=== PATIENT | male | born 1990 ===

== ENCOUNTER 2017-04-05 19:35 | Emergency (ER) | payer OTHER ==
[2017-04-05 19:52] VITALS: BP 141/94; PULSE 101; RESP 17; TEMP 98.8; O2SAT 99
--- NOTE | 2017-04-05 21:28 | ED PDOC ---
HPI: Back Time Seen by Provider: 04/05/17 20:23 Chief Complaint (Nursing): Back Pain Chief Complaint (Provider): Back Pain History Per: Patient History/Exam Limitations: no limitations Onset/Duration Of Symptoms: Days (x1 month), Intermittent Episodes Current Symptoms Are (Timing): Still Present Additional Complaint(s): 27 year old male who presents to the emergency department with a complaint of intermittent low back pain worsen with more than 2 hours of walking/standing ongoing for 1 month. Denied any trauma or injury. Patient reported taking Tylenol with minimal alleviation of pain. PMD: none provided Past Medical History Reviewed: Historical Data, Nursing Documentation, Vital Signs Vital Signs: Last Vital Signs Temp 98.8 F 04/05/17 19:50 Pulse 101 H 04/05/17 19:50 Resp 17 04/05/17 19:50 BP 141/94 H 04/05/17 19:50 Pulse Ox 99 04/05/17 19:50 - Medical History PMH: No Chronic Diseases - Surgical History Surgical History: No Surg Hx - Family History Family History: States: Unknown Family Hx - Social History Current smoker - smoking cessation education provided: No Alcohol: None Drugs: Denies - Home Medications Home Medications: Ambulatory Orders Medication Instructions Recorded Cyclobenzaprine [Cyclobenzaprine 10 mg PO TID PRN #15 tab 04/05/17 HCl] Naproxen 500 mg PO BID #30 tab 04/05/17 - Allergies Allergies/Adverse Reactions: Allergies Allergy/AdvReac Type Severity Reaction Status Date / Time No Known Allergies Allergy Verified 04/05/17 19:52 Review of Systems ROS Statement: Except As Marked, All Systems Reviewed And Found Negative Musculoskeletal: Positive for: Back Pain (lower). Negative for: Other (back trauma or injury) Physical Exam - Reviewed Nursing Documentation Reviewed: Yes Vital Signs Reviewed: Yes - Physical Exam Appears: Positive for: Uncomfortable Skin: Positive for: Normal Color, Warm, Dry. Negative for: Rash, Cyanosis Eye Exam: Positive for: Normal appearance, EOMI, PERRL. Negative for: Nystagmus Neck: Positive for: Normal, Painless ROM, Supple. Negative for: Decreased ROM Cardiovascular/Chest: Positive for: Regular Rate, Rhythm, Chest Non Tender Respiratory: Positive for: Normal Breath Sounds. Negative for: Decreased Breath Sounds, Wheezing, Respiratory Distress Gastrointestinal/Abdominal: Positive for: Normal Exam, Soft. Negative for: Tenderness, Mass Back: Positive for: Vertebral Tenderness (midline mildly at L3-L4). Negative for: Normal Inspection, L CVA Tenderness, R CVA Tenderness, Other (deformities) Extremity: Positive for: Normal ROM (lower). Negative for: Pedal Edema ( bilateral), Calf Tenderness (bilateral), Deformity Neurologic/Psych: Positive for: Alert (x3), Oriented - ECG O2 Sat by Pulse Oximetry: 99 (RA) Pulse Ox Interpretation: Normal Medical Decision Making Medical Decision Making: Initial Impression: Back pain Initial Plan: * Xray LS spine AP/LAT Time: 2119 XR L spine : (-) fracture, (+) loss of normal lordosis of the lumbar spine, as read by KELSEA. XR results d/w the patient. Advised on proper posturing. Otherwise, advised to follow up with primary care physician or referral physician in 1-2 days without fail. Advised to take medication as prescribed. Return to the emergency room at any time for any new or worsening symptoms. Patient states he fully agrees with and understands discharge instructions. States that he agrees with the plan and disposition. Verbalized and repeated discharge instructions and plan. I have given the patient opportunity to ask any additional questions. Scribe Attestation: Documented by Chayito Frederick, acting as a scribe for Echo Avila PA-C. Provider Scribe Attestation: All medical record entries made by the Scribe were at my direction and personally dictated by me. I have reviewed the chart and agree that the record accurately reflects my personal performance of the history, physical exam, medical decision making, and the department course for this patient. I have also personally directed, reviewed, and agree with the discharge instructions and disposition. Disposition - Clinical Impression Clinical Impression: Low back pain - Patient ED Disposition Is Patient to be Admitted: No Counseled Patient/Family Regarding: Diagnosis, Need For Followup - Disposition Referrals: David Mendez MD [Medical Doctor] - Disposition: Routine/Home Disposition Time: 21:20 Condition: STABLE Additional Instructions: Thank you for letting us take care of you today. You were treated for low back pain. The emergency medical care you received today was directed at your acute symptoms. If you were prescribed any medication, please fill it and take as directed. It may take several days for your symptoms to resolve. Return to the Emergency Department if your symptoms worsen, do not improve, or if you have any other problems. Please contact your doctor in 2 days for re-evaluation and follow up / or call one of the physicians/clinics you have been referred to that are listed on the Patient Visit Information form that is included in your discharge packet. Bring any paperwork you were given at discharge with you along with any medications you are taking to your follow up visit. Our treatment cannot replace ongoing medical care by a primary care provider (PCP) outside of the emergency department. Thank you for allowing the [facility] team to be part of your care today. If you had an X-Ray : A Radiologist will review the ED reading if any change in treatment is needed we will contact you. Prescriptions: Cyclobenzaprine [Cyclobenzaprine HCl] 10 mg PO TID PRN #15 tab PRN Reason: Muscle Spasm Naproxen 500 mg PO BID #30 tab Instructions: Acute Low Back Pain (ED) Forms: [employer] (M[place]ese), [facility] ED School/Work Excuse
--- NOTE | 2017-04-06 10:09 | RAD ---
PROCEDURE: Radiographs of the Lumbar Spine. HISTORY: pain COMPARISON: No prior. FINDINGS: BONES: Normal alignment. No listhesis. No fracture. DISC SPACES: Unremarkable. OTHER FINDINGS: None. IMPRESSION: Unremarkable radiographs of the lumbar spine.
== END 2017-04-05 22:12 | disposition home or self-care (01) ==
LOC: H.ER 19:35
DX: M54.5 Low back pain (principal)